=== PATIENT | male | born 1975 | race African-American/Black ===

== ENCOUNTER 2017-04-02 19:53 | Emergency (ER) | payer OTHER ==
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
== END 2017-04-02 22:03 | disposition home or self-care (01) ==
LOC: ER 19:53
DX: S13.4XXA Sprain of ligaments of cervical spine, initial encounter (principal); V43.53XA Car driver injured in collision with pick-up truck in traffic accident, initial encounter